=== PATIENT | female | born 1980 | race Two or more races ===

== ENCOUNTER 2017-09-17 19:03 | Emergency (ER) | payer OTHER ==
[2017-09-17] MEDS: NAPROXEN 500 MG TABLET PO (19:53)
[2017-09-17] MEDS: HYDROcodone/APAP 5/325MG 1 TAB TABLET PO (19:54)
== END 2017-09-17 20:04 | disposition home or self-care (01) ==
LOC: ER 19:03
DX: M25.562 Pain in left knee (principal)
CPT/HCPCS: 29505; 99283-25